=== PATIENT | female | born 1960 | race Hispanic/Latino ===

== ENCOUNTER 2019-04-18 05:49 | Day surgery (SDC) | payer OTHER ==
[~2019-04-18] VITALS: Ht 165.1 cm; Wt 90.3 kg
[~2019-04-18 05:49] MED LIST: AMLO5TAB9 PO; ASPI-555 PO; ATOR10TA69 PO; BISA5TAB12 PO; CHLO25TA3 PO; CHOL200059 PO; DAPA5TAB PO; EZET10TA48 PO; INSLAN SQ; LIRA0.6P SQ; LISI-613 PO; METF-527 PO; METO25TA6 PO; OMEP-298 PO; PREG75 PO; TICA90TA PO; WHEA1POW2 PO
[2019-04-18] MEDS ORDERED: SODIUM CHLORIDE 0.9% 1000ML 1,000 ML IV ONE (06:11)
[2019-04-18] MEDS ORDERED: MIDAZOLAM HCL 1 MG/ML 2ML VIAL ONE (06:31)
[2019-04-18] MEDS ORDERED: PROPOFOL 10 MG/ML 20ML VIAL IV ONE ×2 (06:31→07:14)
[2019-04-18] MEDS ORDERED: LIDOCAINE HCL 1% 20 ML VIAL ONE (06:32)
[2019-04-18 06:43] VITALS: BP 131/81
[2019-04-18 07:32] VITALS: BP 142/82
[2019-04-18 07:37] VITALS: BP 140/80
[2019-04-18 07:42] VITALS: BP 141/81
== END 2019-04-18 08:00 | disposition home or self-care (01) ==
LOC: ENDO 05:49 → DAH 05:49 → ENDO 08:00
PROVIDERS: ATTEND Internal Medicine Gastroenterology
DX: K25.9 Gastric ulcer, unspecified as acute or chronic, without hemorrhage or perforation (principal); E78.5 Hyperlipidemia, unspecified; K59.04 Chronic idiopathic constipation; I10 Essential (primary) hypertension; I25.10 Atherosclerotic heart disease of native coronary artery without angina pectoris; K21.9 Gastro-esophageal reflux disease without esophagitis; E11.9 Type 2 diabetes mellitus without complications; Z98.890 Other specified postprocedural states; Z79.82 Long term (current) use of aspirin; Z79.899 Other long term (current) drug therapy; Z98.49 Cataract extraction status, unspecified eye; Z79.4 Long term (current) use of insulin; Z82.49 Family history of ischemic heart disease and other diseases of the circulatory system; Z83.3 Family history of diabetes mellitus
CPT/HCPCS: 36415; 43239; 45378; 82172; 82247; 82948 ×3; 82977; 83010; 83883; 84460; A4215; A4221; A4222; A4223; A4606; A4620; A4663; J2250; J2704 ×2; J7030; G0121

== ENCOUNTER 2019-04-19 05:48 | Day surgery (SDC) | payer OTHER ==
[~2019-04-19] VITALS: Ht 165.1 cm; Wt 90.3 kg
[2019-04-19] MEDS ORDERED: SODIUM CHLORIDE 0.9% 1000ML 1,000 ML IV ONE (06:23)
[2019-04-19] MEDS ORDERED: PROPOFOL 10 MG/ML 20ML VIAL IV ONE (06:32)
[2019-04-19 07:01] VITALS: BP 136/86
[2019-04-19 08:00] VITALS: BP 101/55
[2019-04-19 08:05] VITALS: BP 120/69
[2019-04-19 08:10] VITALS: BP 126/73
== END 2019-04-19 08:30 | disposition home or self-care (01) ==
LOC: ENDO 05:48 → DAH 05:48 → ENDO 08:30
PROVIDERS: ATTEND Internal Medicine Gastroenterology
DX: K59.04 Chronic idiopathic constipation (principal); K63.5 Polyp of colon; K64.8 Other hemorrhoids; K57.30 Diverticulosis of large intestine without perforation or abscess without bleeding; I10 Essential (primary) hypertension; E78.5 Hyperlipidemia, unspecified; E11.9 Type 2 diabetes mellitus without complications; K21.9 Gastro-esophageal reflux disease without esophagitis; I25.10 Atherosclerotic heart disease of native coronary artery without angina pectoris; Z79.82 Long term (current) use of aspirin; Z79.899 Other long term (current) drug therapy; Z79.4 Long term (current) use of insulin; Z98.41 Cataract extraction status, right eye; Z98.42 Cataract extraction status, left eye; Z98.890 Other specified postprocedural states; Z79.84 Long term (current) use of oral hypoglycemic drugs; Z82.49 Family history of ischemic heart disease and other diseases of the circulatory system; Z83.3 Family history of diabetes mellitus
CPT/HCPCS: 45380; 82948 ×2; A4215; A4221; A4222; A4223; A4606; A4615; A4663; J2704; J7030